=== PATIENT | male | born 1975 | race African-American/Black ===

== ENCOUNTER 2025-01-10 20:06 | Emergency (ER) | payer SELFPAY ==
[~2025-01-10] VITALS: Ht 182.9 cm; Wt 69.0 kg
[2025-01-10] MEDS ORDERED: METH4PAK PO (21:47)
[2025-01-10] MEDS ORDERED: TIZA-142 PO (21:47)
--- NOTE | 2025-01-10 21:48 | ED.PDOC ---
Back pain HPI HPI Comments 59-YEAR-OLD MALE PRESENTS IN THE ED ACUTE ON CHRONIC LEFT-SIDED LOWER BACK PAIN. PATIENT STATES LEFT-SIDED LOW BACK PAIN HAS PROGRESSIVELY GOTTEN WORSE OVER THE PAST TWO WEEKS. HE NOTES NO DIFFERENCE AND TYPE OF PAIN JUST ACUTE EXACERBATION LEFT LOWER BACK SHOOTING AROUND LEFT LATERAL HIP ONTO ANTERIOR THIGHS TRAVELING DOWN TO HE WAS KNEE WRAPPING AROUND HIS CALF AND THEN TO HIS FEET AND TOES. TINGLING IN HIS TOES. HE HAS PAIN 10/10 ON PAIN SCALE. HE STATES FOLLOWED WITH PAIN MANAGEMENT SIX MONTHS AGO AND HAD A SERIES OF EPIDURAL INJECTIONS HELPED SINCE THIS LAST EXACERBATION. HE NOTES UNABLE TO FOLLOW BACK UP DUE TO CURRENTLY DOES NOT HAVE INSURANCE. WEAKNESS, INJURY, SADDLE ANESTHESIA, FEVER, CHILLS, LOSS OF BOWEL OR BLADDER CONTROL. Chief Complaint: Back Pain Time Seen by MD: 20:35 Reviewed Notes: Nurses Notes, Medications, Allergies Allergies: Coded Allergies: NO KNOWN ALLERGIES (Unverified , 01/10/25) Information Source: Patient Mode of Arrival: Wheelchair Past Medical History PAST MEDICAL HISTORY: Denies Past Medical History (Other): CHRONIC LOW BACK PAIN Surgical History: Denies all surgeries Family History Family History: Reviewed,noncontributory to illness Social History Smoker: Non-Smoker Alcohol: Denies ETOH Use Drugs: Denies Drug Use Constitutional: denies: chills, diaphoresis, fatigue, fever, malaise, sweats, weakness, others EENTM: denies: blurred vision, double vision, ear bleeding, ear discharge, ear drainage, ear pain, ear ringing, eye pain, eye redness, hearing loss, mouth pain, mouth swelling, nasal discharge, nose bleeding, nose congestion, nose pain, photophobia, tearing, throat pain, throat swelling, voice changes, others Respiratory: denies: cough, hemoptysis, orthopnea, SOB at rest, shortness of breath, SOB with excertion, stridor, wheezing, others Cardiovascular: denies: chest pain, dizzy spells, diaphoresis, Dyspnea on exertion, edema, irregular heart beat, left arm pain, lightheadedness, palpitations, PND, syncope, others Gastrointestinal: denies: abdomen distended, abdominal pain, blood streaked bowels, constipated, diarrhea, dysphagia, difficulty swallowing, hematemesis, melena, nausea, poor appetite, poor fluid intake, rectal bleeding, rectal pain, vomiting, others Genitourinary: denies: burning, dysuria, flank pain, frequency, hematuria, incontinence, penile discharge, penile sore, pain, testicle pain, testicle swelling, urgency, others Neurological: denies: dizziness, fainting, headache, left sided numbness, left sided weakness, numbness, paresthesia, pre-existing deficit, right sided numbness, right sided weakness, seizure, speech problems, tingling, tremors, weakness, others Musculoskeletal: reports: back pain (LEFT SIDE); denies: gout, joint pain, bj int swelling, muscle pain, muscle stiffness, neck pain, others Integumetry: denies: bruises, change in color, change in hair/nails, dryness, laceration, lesions, lumps, rash, wounds, others Allergic/Immunocompromised: denies: Difficulty Healing, Frequent Infections, Hives, Itching, others Hematologic/Lymphatic: denies: anemia, blood clots, easy bleeding, easy bruising, swollen glands, others Endocrine: denies: excessive hunger, excessive sweating, excessive thirst, excessive urination, flushing, intolerance to cold, intolerance to heat, unexplained weight gain, unexplained weight loss, others Psychiatric: denies: anxiety, bipolar disorder, depression, hopeless, panic disorder, schizophrenia, sleepless, suicidal, others Physical Exam General Appearance: No Apparent Distress, Normal HEENT: Pharynx Normal Neck: Full Range of Motion, Non-Tender Respiratory: Lungs Clear, No Respiratory Distress, Normal Breath Sounds Cardiovascular: No Murmur, Normal Peripheral Pulses, Regular Rate/Rhythm Breast Exam: Deferred Gastrointestinal: No Organomegaly, Non Tender, No Pulsatile Mass, Normal Bowel Sounds, Soft Genitalia: Deferred Pelvic: Deferred Rectal: Deferred Extremities: Normal capillary refill, Normal inspection, Normal range of motion, Non-tender, No pedal edema Musculoskeletal : Location: Left Extremity Location: Back (TENDERNESS ALONG L1 THROUGH L5 PARASPINAL MUSCLES WITH SPASMS LEFT SIDE. CREPITUS STEP-OFFS L1 THROUGH L5. POSITIVE STRAIGHT LEG RAISE LEFT SIDE. 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 Was a procedure done?: No Back Pain Differential Dx Differential Diagnosis: Musculoskeletal Pain X-Ray, Labs, Meds, VS Vital Signs Date Time Temp Pulse Resp B/P (MAP) Pulse Ox O2 Delivery O2 Flow Rate FiO2 01/10/25 20:23 98.4 91 18 125/88 (100) 96 X-Ray, Labs, Meds, VS Comment BASED ON THE PATIENT'S PERSISTENCE OF SYMPTOMS, THE PATIENT SOUGHT OUT ED CONSULT. BASED ON MY PHYSICAL EXAMINATION AND PATIENT'S HISTORY OF CHRONIC BACK PAIN, THERE IS NO NEW INJURY TO THE PATIENT'S BACK. THE PATIENT DENIES ANY NUMBNESS, WEAKNESS, TINGLING SENSATION, URINARY/BOWEL INCONTINENCE. THERE ARE NO SIGNS AND SYMPTOMS OF CAUDA EQUINA. THE PATIENT STATES THAT THE PAIN IS THE SAME WHEN THEY HAVE BACK PAIN FLARE-UP AND THAT THEY ONLY NEED PAIN MEDICATION IN THE ER. AT THIS POINT, THERE IS NO INDICATION FOR ANY IMAGING. THE PATIENT WAS ADVISED TO FOLLOW UP WITH ORTHO SPECIALIST FOR THEIR CHRONIC LOWER BACK PAIN AND PAIN MANAGEMENT DOCTOR FOR PAIN CONTROL. PATIENT WAS GIVEN ... FOR PAIN ME DICATION. OVERALL PATIENT'S VITAL SIGNS ARE STABLE AND THE PATIENT WILL BE DISCHARGED HOME. SCRIPT MEDROL DOSEPAK AND A MUSCLE RELAXANT. Time of 1ST Reevaluation: 21:42 Reevaluation 1ST: Improved Patient Education/Counseling: Diagnosis, Treatment, Prognosis, Need For Follow Up Family Education/Counseling: No Family Present Departure 1 Departure Time of Disposition: 21:48 Impression: Primary Impression: Lumbar radiculopathy Additional Impression: Lumbar sprain Qualified Codes: S33.5XXA - Sprain of ligaments of lumbar spine, initial encounter Disposition: HOME / SELF CARE / HOMELESS Condition: Stable e-Prescriptions Tizanidine Hydrochloride (Tizanidine Hcl) 4 Mg Tab 4 MG PO BID for 7 Days, #14 TAB Prov: ASTER LEMOS 01/10/25 Methylprednisolone (Medrol Dosepak) 4 Mg Anurag 4 MG PO UD for 6 Days, #21 TAB 1 Refill UAD Prov: ASTER LEMOS 01/10/25 Discharged With: Significant Other Critical Care Note Critical Care Time?: No Stability Stability form required: No ASTER LEMOS Jan 10, 2025 21:48
[2025-01-10 21:51] VITALS: BP 118/76; PULSE 78; RESP 18; TEMP 98.4; O2SAT 98
[2025-01-10] MEDS: HYDROcodone-ACET 5/325MG TAB PO ONE (21:57)
[2025-01-10] MEDS: DexAMETHasone SOD PHOS 10MG/1ML VIAL INJ IM ONE (21:58)
[2025-01-10] MEDS: KETOROLAC TROMETH 60MG/2ML VIAL IM ONE (21:58)
== END 2025-01-10 22:47 | disposition home or self-care (01) ==
LOC: ER 20:06
DX: S33.5XXA Sprain of ligaments of lumbar spine, initial encounter (principal); Z98.890 Other specified postprocedural states; X58.XXXA Exposure to other specified factors, initial encounter; Y93.89 Activity, other specified; Y92.89 Other specified places as the place of occurrence of the external cause; Y99.8 Other external cause status
CPT/HCPCS: 96372; 99284; J1100; J1885